=== PATIENT | male | born 1995 | race Two or more races ===

== ENCOUNTER 2021-01-01 08:49 | Emergency (ER) | payer SELFPAY ==
[~2021-01-01] VITALS: Ht 167.6 cm; Wt 68.0 kg
[2021-01-01] MEDS ORDERED: DICYCLOMINE 10 MG/5 ML ORAL SYR PO STA (09:37)
[2021-01-01] MEDS ORDERED: MAGNESIUM/ALUMINUM HYDROXIDE/SIMETHICONE 30ML UDC PO STA (09:37)
[2021-01-01 09:59] LABS: HEMATOCRIT. 44.8 % (42.0-52.0); HEMOGLOBIN. 15.6 g/dL (14.0-18.0); MEAN CORPUSCULAR HEMOGLOBIN 31.4 pg (28.0-32.0); MEAN CORPUSCULAR VOLUME 90.6 fL (80.0-94.0); MEAN PLATELET VOLUME 9.3 fl (7.4-10.4); PLATELET 200 x1000/uL (130-400); RED BLOOD CELL COUNT 4.95 mill/uL (4.7-6.1); RED CELL DISTRIBUTION WIDTH 13.3 % (11.6-14.6)
[2021-01-01 10:02] LABS: CLARITY URINE CLEAR (CLEAR); COLOR URINE YELLOW (YELLOW); KETONES URINE NEGATIVE (NEGATIVE); LEUKOCYTE ESTERASE URINE NEGATIVE (NEGATIVE); NITRITE URINE NEGATIVE (NEGATIVE); OCCULT BLOOD URINE NEGATIVE (NEGATIVE); PH URINE >=9.0 (4.5-8.0); PROTEIN URINE 1+ (NEGATIVE); SPECIFIC GRAVITY URINE 1.031 (1.005-1.030)
[2021-01-01 10:04] LABS: CHLORIDE 102 mEq/L (98-107)
[2021-01-01 10:09] LABS: ETHANOL BLOOD < 10 mg/dL
[2021-01-01 10:15] LABS: PLATELET ESTIMATE NORMAL
[2021-01-01] MEDS ORDERED: ONDANSETRON 4MG ODT PO ONE (10:15)
[2021-01-01 10:23] LABS: *AMPHETAMINES SCREEN URINE NEGATIVE (NEGATIVE)
[2021-01-01 10:24] LABS: *BARBITURATES SCREEN URINE NEGATIVE (NEGATIVE); *BENZODIAZEPINES SCREEN URINE NEGATIVE (NEGATIVE); *COCAINE SCREEN URINE NEGATIVE (NEGATIVE); METHADONE URINE SCREEN NEGATIVE (NEGATIVE); OPIATES URINE SCREEN NEGATIVE (NEGATIVE); PHENCYCLIDINE URINE SCREEN NEGATIVE (NEGATIVE)
[2021-01-01 10:25] LABS: CANNABINOID URINE SCREEN PRESUMTIVE POSITIVE (NEGATIVE)
[2021-01-01] MEDS ORDERED: OMEP40CA12 MT (11:24)
[2021-01-01] MEDS ORDERED: KETOROLAC 60MG/2ML VIAL IM ONE (11:30)
[2021-01-01 11:46] VITALS: BP 112/59
== END 2021-01-01 12:00 | disposition home or self-care (01) ==
LOC: ER 09:12
DX: R10.815 Periumbilic abdominal tenderness (principal); R00.2 Palpitations; R10.9 Unspecified abdominal pain; R11.2 Nausea with vomiting, unspecified; Z79.899 Other long term (current) drug therapy; Z87.09 Personal history of other diseases of the respiratory system
CPT/HCPCS: 36415; 74018; 80053; 80305; 80320; 81003; 83690; 85025; 93005; 96372; 99285; J1885; Q0162; Z7610; G0480

== ENCOUNTER 2021-06-05 23:56 | Emergency (ER) | payer MEDICAID ==
[~2021-06-05] VITALS: Ht 165.1 cm; Wt 59.0 kg
[~2021-06-05 23:56] MED LIST: OMEP40CA12 MT
[2021-06-06] MEDS ORDERED: ALBUTEROL (0.083%) 2.5MG/3ML NEB HHN ONE (02:45)
[2021-06-06] MEDS ORDERED: PREDNISONE 20MG TABLET PO ONE (02:45)
[2021-06-06] MEDS ORDERED: ALBUTEROL 6.7GM HFA INHALER ORI ONE (03:30)
[2021-06-06] MEDS ORDERED: P50 MT (03:41)
[2021-06-06] MEDS ORDERED: ALBU18HF2 IH (03:41)
[2021-06-06 03:45] VITALS: BP 105/85
== END 2021-06-06 04:00 | disposition home or self-care (01) ==
LOC: ER 23:56
DX: R05 Cough (principal); R06.2 Wheezing; Z20.822 Contact with and (suspected) exposure to COVID-19
CPT/HCPCS: 71045; 87426; 99284; J7512; Z7610